=== PATIENT | male | born 1980 | race Caucasian/White ===

== ENCOUNTER 2018-06-20 19:59 | Emergency (ER) | payer SELFPAY ==
--- NOTE | 2018-06-20 21:06 | ER ---
Nurse's Notes [facility] Name: Braydon Vu Age: 37 yrs Sex: Male : 1980 Arrival Date: 06/20/2018 Time: 20:07 Bed 10 Private MD: Diagnosis: Cellulitis and acute lymphangitis of other parts of limb Presentation: 06/20 20:34 Presenting complaint: Patient states: "I got bit by a spider or something, I got a aj1 little bit of pus out of it and I've been treating it with ointment at the house, but now its really swelled and got inflammed. It's making my arm hurt." Abscess noted to right lower arm. Patient denies fever. Transition of care: patient was not received from another setting of care. Onset of symptoms was June 16, 2018. Risk Assessment: Do you want to hurt yourself or someone else? Patient reports no desire to harm self or others. Initial Sepsis Screen: Does the patient meet any 2 criteria? No. Patient's initial sepsis screen is negative. Does the patient have a suspected source of infection? No. Patient's initial sepsis screen is negative. Care prior to arrival: None. 20:34 Method Of Arrival: Ambulatory aj1 20:34 Acuity: CAMILEL 4 aj1 Triage Assessment: 20:36 General: Appears in no apparent distress. comfortable, Behavior is calm, cooperative, aj1 appropriate for age. Pain: Complains of pain in palmar aspect of right forearm Pain currently is 4 out of 10 on a pain scale. Quality of pain is described as burning. Neuro: Level of Consciousness is awake, alert, obeys commands. Cardiovascular: Patient's skin is warm and dry. Respiratory: Airway is patent Respiratory effort is even, unlabored, Respiratory pattern is regular, symmetrical. 21:57 Bite description: by Unknown possible bite. jl3 21:59 Bite description: bite sustained to right arm. jl3 21:59 Bite description: animal information: vaccination(s) is current. jl3 Historical: - Allergies: 20:36 Sulfa (Sulfonamide Antibiotics); aj1 - Home Meds: 20:36 None [Active]; aj1 - PMHx: 20:36 None; aj1 - PSHx: 20:36 eye surgery; vastectomy; hydrocelectomy; aj1 - Immunization history:: Flu vaccine is not up to date. - Social history:: Smoking status: Patient uses tobacco products, denies chronic smoking, but will smoke occasionally, Patient/guardian denies using alcohol, street drugs, The patient lives with family. - Ebola Screening: : Patient denies travel to an Ebola-affected area in the 21 days before illness onset. - Family history:: not pertinent. Screenin:57 Abuse screen: none noted. Nutritional screening: No deficits noted. Tuberculosis jl3 screening: No symptoms or risk factors identified. Fall Risk None identified. Assessment: 21:55 Derm: Skin has lesions on Wound appears to be a puncture to R. elbow, but pt states jl3 possible cellulitis Skin is pink. Vital Signs: 20:36 BP 163 / 102; Pulse 79; Resp 18; Temp 98.1; Pulse Ox 100% on R/A; Weight 145.15 kg (R); aj1 Height 5 ft. 9 in. (175.26 cm); Pain 4/10; 21:59 BP 144 / 96; Pulse 80; Resp 18; Pulse Ox 99% ; Pain 3/10; jl3 20:36 Body Mass Index 47.26 (145.15 kg, 175.26 cm) aj1 ED Course: 20:07 Patient arrived in ED. as 20:35 Triage completed. aj1 20:36 Arm band placed on Patient placed in an exam room. aj1 20:50 Zaida Skaggs MD is Attending Physician. ma2 21:30 Malick Mcdaniel, RN is Primary Nurse. jl3 21:57 No provider procedures requiring assistance completed. Patient did not have IV access jl3 during this emergency room visit. 21:59 Patient has correct armband on for positive identification. jl3 Administered Medications: No medications were administered Outcome: 21:05 Discharge ordered by . ma2 21:58 Discharged to home jl3 21:58 Condition: good 21:58 Discharge instructions given to patient. 22:00 Patient left the ED. jl3 Signatures: Cathy Zapata RN RN aj1 Joselin Taveras John, RN RN jl3 Zaida Skaggs MD MD ma2
--- NOTE | 2018-06-20 21:06 | EDPHYS ---
Physician Documentation [facility] Name: Braydon Vu Age: 37 yrs Sex: Male : 1980 Arrival Date: 06/20/2018 Time: 20:07 Bed 10 Private MD: ED Physician Zaida Skaggs HPI: 06/20 21:02 This 37 yrs old Male presents to ER via Ambulatory with complaints of Insect ma2 Bite. 21:02 The patient or guardian complains of pain, swelling. The complaints affect the palmar ma2 aspect of right forearm. Context: The problem was sustained. Onset: The symptoms/episode began/occurred gradually, 2 day(s) ago. Treatment prior to arrival includes: no previous treatment. Associated signs and symptoms: Pertinent positives:. Associated signs and symptoms: Pertinent positives: erythema, swelling, Pertinent negatives: pain, tingling. Severity of symptoms: At their worst the symptoms were moderate. The patient has not experienced similar symptoms in the past. Historical: - Allergies: 20:36 Sulfa (Sulfonamide Antibiotics); aj1 - Home Meds: 20:36 None [Active]; aj1 - PMHx: 20:36 None; aj1 - PSHx: 20:36 eye surgery; vastectomy; hydrocelectomy; aj1 - Immunization history:: Flu vaccine is not up to date. - Social history:: Smoking status: Patient uses tobacco products, denies chronic smoking, but will smoke occasionally, Patient/guardian denies using alcohol, street drugs, The patient lives with family. - Ebola Screening: : Patient denies travel to an Ebola-affected area in the 21 days before illness onset. - Family history:: not pertinent. ROS: 21:02 Constitutional: Negative for fever, chills, and weight loss, Eyes: Negative for injury, ma2 pain, redness, and discharge, Cardiovascular: Negative for chest pain, palpitations, and edema. 21:02 Skin: Positive for swelling, Negative for abscesses, avulsion, puncture. 21:02 All other systems are negative. Exam: 21:02 Constitutional: This is a well developed, well nourished patient who is awake, alert, ma2 and in no acute distress. Head/Face: Normocephalic, atraumatic. Chest/axilla: Normal chest wall appearance and motion. Nontender with no deformity. No lesions are appreciated. Cardiovascular: Regular rate and rhythm with a normal S1 and S2. No gallops, murmurs, or rubs. Normal PMI, no JVD. No pulse deficits. Respiratory: Lungs have equal breath sounds bilaterally, clear to auscultation and percussion. No rales, rhonchi or wheezes noted. No increased work of breathing, no retractions or nasal flaring. Neuro: Awake and alert, GCS 15, oriented to person, place, time, and situation. Cranial nerves II-XII grossly intact. Motor strength 5/5 in all extremities. Sensory grossly intact. Cerebellar exam normal. Normal gait. 21:02 Musculoskeletal/extremity: Circulation is intact in all extremities. Sensation intact. Compartment Syndrome exam of affected extremity: is normal. right forearm cellulitis with induration 3x3 cm, no fluctuance . Vital Signs: 20:36 BP 163 / 102; Pulse 79; Resp 18; Temp 98.1; Pulse Ox 100% on R/A; Weight 145.15 kg (R); aj1 Height 5 ft. 9 in. (175.26 cm); Pain 4/10; 21:59 BP 144 / 96; Pulse 80; Resp 18; Pulse Ox 99% ; Pain 3/10; jl3 20:36 Body Mass Index 47.26 (145.15 kg, 175.26 cm) aj1 MDM: 20:50 Patient medically screened. ma2 21:02 Differential diagnosis: contusion, abrasion, cellulitis. Data reviewed: vital signs, ma2 nurses notes. Counseling: I had a detailed discussion with the patient and/or guardian regarding: the historical points, exam findings, and any diagnostic results supporting the discharge/admit diagnosis, the presence of at least one elevated blood pressure reading (>120/80) during this emergency department visit, the need for outpatient follow up. 06/20 20:51 Order name: NPO; Complete Time: 21:54 ma2 Administered Medications: No medications were administered Disposition: 06/20/18 21:05 Discharged to Home. Impression: Cellulitis and acute lymphangitis of other parts of limb. - Condition is Stable. - Discharge Instructions: Cellulitis, Adult. - Prescriptions for Clindamycin HCl 300 mg Oral Capsule - take 1 capsule by ORAL route every 6 hours for 10 days; 40 capsule. Tylenol- Codeine #3 300-30 mg Oral Tablet - take 2 tablet by ORAL route every 6 hours As needed; 30 tablet. - Medication Reconciliation Form, Thank You Letter, Antibiotic Education, Prescription Opioid Use form. - Follow up: Private Physician; When: Tomorrow; Reason: Continuance of care. - Problem is new. - Symptoms are unchanged. Signatures: Cathy Zapata RN RN aj1 Malick Mcdaniel RN RN jl3 Zaida Skaggs MD MD ma2 Corrections: (The following items were deleted from the chart) 22:00 21:05 06/20/2018 21:05 Discharged to Home. Impression: Cellulitis and acute jl3 lymphangitis of other parts of limb. Condition is Stable. Forms are Medication Reconciliation Form, Thank You Letter, Antibiotic Education, Prescription Opioid Use. Follow up: Private Physician; When: Tomorrow; Reason: Continuance of care. Problem is new. Symptoms are unchanged. ma2
[2018-06-20 23:48] VITALS: TEMP 98.1
[2018-06-20 23:49] VITALS: BP 144/96; O2SAT 99
== END 2018-06-20 22:00 | disposition home or self-care (01) ==
LOC: ER 19:59
DX: L03.113 Cellulitis of right upper limb (principal); L03.123 Acute lymphangitis of right upper limb; Z72.0 Tobacco use; Z88.2 Allergy status to sulfonamides
CPT/HCPCS: 99281

== ENCOUNTER → 2023-10-03 | Emergency (ER) | payer OTHER, SELFPAY ==
[~2023-10-03] MED LIST: ALBUTEROL 2.5 MG/3 ML NEB SOL ONE; DIPHENHYDRAMINE 50 MG/ML VIAL ONE; EPINEPHRINE 1 MG/ML VIAL ONE; EPINEPHrine 1 MG/10 ML SYR ONE; FAMOTIDINE 20 MG/2 ML VIAL IV ONE; IPRATROPIUM BROM 0.5MG/2.5ML ONE; METHYLPREDNISOLONE 125 MG INJ ONE; NA CHLORIDE 0.9% 1,000 ML ONE; predniSONE 20 MG TAB ONE
--- OUTSIDE RECORDS SUMMARY | 2023-10-03 16:12 | XMS REPORT | Continuity of Care Document ---
Author Name Unknown Address [address] [place] [address] [id number] [facility] Address [address] [id number] [address] [place] [address] Care Team Providers Care Meat Curer Name Role Phone Pedro Palmer Attending Clinician Unavailable Problems Condition Name Condition Details Condition Category Status Onset Date Resolution Date Last Treatment Date Treating Clinician Comments Source Tobacco use disorder Tobacco use disorder Problem Active [facility] Morbid (severe) obesity due to excess calories Morbid (severe) obesity due to excess calories Problem Active [facility] Body mass index (BMI) 50.0-59.9, adult Body mass index (BMI) 50.0-59.9, adult Problem Active [facility] Mixed hyperlipid emia Mixed hyperlipid emia Diagnosis Active [facility] Elevated BP without diagnosis of hypertensi on Elevated BP without diagnosis of hypertensi on Diagnosis Active [facility] Acute bronchitis , unspecifie d organism Acute bronchitis , unspecifie d organism Diagnosis Active [facility] Allergies, Adverse Reactions, Alerts Allergy Name Allergy Type Status Severity Reaction(s) Onset Date Inactive Date Treating Clinician Comments Source Sulfa Adverse Reaction Active Info Not Available [facility] Medications Ordered Medication Name Filled Medication Name Start Date Stop Date Current Medication? Ordering Clinician Indication Dosage Frequency Signature (SIG) Comments Components Source ProAir HFA ProAir HFA 3-10 00:00: 00 Yes Pedro Palmer 2 puffs as needed [facility] Pseudoeph-B romphen-DM Pseudoeph-B romphen-DM 3-10 00:00: 00 Yes Pedro Palmer Take 5 ml (Max 40 ml/24 hours) [facility] Phentermine HCl Phentermine HCl 12 00:00: 00 11-30 00:00 :00 No Pedro Palmer Take 1 Capsule QAm x 2 weeks then 2 Caps qAM x 1 week [facility] Encounters Start Date/Time End Date/Time Encounter Type Admission Type Attending [facility] Facility Care Department Encounter ID Source 2021-10-15 11:12:29 Outpatient Pedro Palmer [facility] [id number] [facility] 2021-10-15 11:07:13 Outpatient Pedro Palmer [facility] [id number] [facility] 2021-10-15 11:06:28 Outpatient Pedro Palmer [facility] [id number] [facility] 2019-11-28 08:30:00 2019-11-28 08:30:00 Outpatient [facility] [id number] [facility] 2019-11-01 08:15:00 2019-11-01 08:15:00 Outpatient [facility] [id number] [facility]
[2023-10-03 16:52] LABS: Absolute Lymphocytes (CBC) 4.1 K/uL (0.7-4.9); Hematocrit 39.8 % (39.6-49.0); Lymphocytes % 29.5 % (15.3-44.8); MCV 78.1 fL (80-100); MPV 7.4 fL (7.6-11.3); Platelets 425 thou/uL (152-406)
[2023-10-03 17:35] LABS: Albumin 3.4 g/dL (3.4-5.0); Bilirubin Total 0.7 mg/dL (0.2-1.0); Protein, Total 8.7 g/dL (6.4-8.2)
[2023-10-03 17:36] LABS: Potassium 4.2 mEq/L (3.5-5.1)
--- NOTE | 2023-10-03 18:50 | EDPHYS ---
Physician Documentation [facility] Name: Braydon Vu Age: 43 yrs Sex: Male : 1980 Arrival Date: 10/03/2023 Time: 16:09 Bed 5 Private MD: RANI Physician Delmer Leroy HPI: 10/03 17:15 This 43 yrs old Male presents to ER via Ambulatory with complaints of sary Allergic Reaction, Lips Swelling, Facial Swelling. 17:15 The patient presents with difficulty swallowing, diffuse swelling, rash, redness of sary skin, swelling of the lips, swelling of the tongue. Onset: The symptoms/episode began/occurred this morning, today. Associated signs and symptoms: The patient has no apparent associated signs or symptoms. Possible causes: The patient has no known obvious cause for the symptoms. At home the patient or guardian has treated the symptoms with Benadryl. Severity of symptoms: At their worst the symptoms were mild moderate in the emergency department the symptoms are unchanged. The patient has not experienced similar symptoms in the past. Historical: - Allergies: 16:18 Sulfa (Sulfonamide Antibiotics); cm10 - Home Meds: 16:18 None [Active]; cm10 - PMHx: 16:18 None; cm10 - Immunization history:: Adult Immunizations up to date. - Social history:: Smoking status: Reported history of juuling and/or vaping. - Family history:: not pertinent. ROS: 17:15 Constitutional: Negative for fever, chills, and weight loss, Eyes: Negative for injury, sary pain, redness, and discharge, Neck: Negative for injury, pain, and swelling, Cardiovascular: Negative for chest pain, palpitations, and edema, Respiratory: Negative for shortness of breath, cough, wheezing, and pleuritic chest pain, Abdomen/GI: Negative for abdominal pain, nausea, vomiting, diarrhea, and constipation, Back: Negative for injury and pain, : Negative for injury, bleeding, discharge, and swelling, MS/Extremity: Negative for injury and deformity, Skin: Negative for injury, rash, and discoloration, Neuro: Negative for headache, weakness, numbness, tingling, and seizure, Psych: Negative for depression, anxiety, suicide ideation, homicidal ideation, and hallucinations, Allergy/Immunology: Negative for hives, rash, and allergies, Endocrine: Negative for neck swelling, polydipsia, polyuria, polyphagia, and marked weight changes, Hematologic/Lymphatic: Negative for swollen nodes, abnormal bleeding, and unusual bruising, 17:15 ENT: Positive for difficulty swallowing, sinus congestion, Exam: 17:15 Constitutional: This is a well developed, well nourished patient who is awake, alert, sary and in no acute distress. Eyes: Pupils equal round and reactive to light, extra-ocular motions intact. Lids and lashes normal. Conjunctiva and sclera are non-icteric and not injected. Cornea within normal limits. Periorbital areas with no swelling, redness, or edema. Neck: Trachea midline, no thyromegaly or masses palpated, and no cervical lymphadenopathy. Supple, full range of motion without nuchal rigidity, or vertebral point tenderness. No Meningismus. Chest/axilla: Normal chest wall appearance and motion. Nontender with no deformity. No lesions are appreciated. Cardiovascular: Regular rate and rhythm with a normal S1 and S2. No gallops, murmurs, or rubs. Normal PMI, no JVD. No pulse deficits. Respiratory: Lungs have equal breath sounds bilaterally, clear to auscultation and percussion. No rales, rhonchi or wheezes noted. No increased work of breathing, no retractions or nasal flaring. Abdomen/GI: Soft, non-tender, with normal bowel sounds. No distension or tympany. No guarding or rebound. No evidence of tenderness throughout. Back: No spinal tenderness. No costovertebral tenderness. Full range of motion. Male : Normal genitalia with no discharge or lesions. Skin: Warm, dry with normal turgor. Normal color with no rashes, no lesions, and no evidence of cellulitis. MS/ Extremity: Pulses equal, no cyanosis. Neurovascular intact. Full, normal range of motion. Neuro: Awake and alert, GCS 15, oriented to person, place, time, and situation. Cranial nerves II-XII grossly intact. Motor strength 5/5 in all extremities. Sensory grossly intact. Cerebellar exam normal. Normal gait. Psych: Awake, alert, with orientation to person, place and time. Behavior, mood, and affect are within normal limits. 17:15 Head/face: Noted is swelling, that is moderate, of the right eye, left eye and mouth, 17:15 ENT: Mouth: Lips: Oral mucosa: pink and intact, moist, Gums: normal with healthy appearance, Tongue: is swollen, abscess, is not appreciated, drooling, is not appreciated, Vital Signs: 16:16 BP 131 / 65; Pulse 54; Resp 18 S; Temp 98.1(TE); Pulse Ox 98% ; Weight 161.03 kg; cm10 Height 5 ft. 9 in. ; Pain 0/10; 16:54 BP 130 / 72; Pulse 53; Resp 17; Pulse Ox 100% ; ld1 17:52 BP 120 / 50; Pulse 65; Resp 18; Pulse Ox 98% on R/A; mb9 16:16 Body Mass Index 52.42 (161.03 kg, 175.26 cm) cm10 16:16 Pain Scale: Adult cm10 MDM: 16:19 Patient medically screened. sary 17:20 Differential diagnosis: anaphylaxis, angioedema, foreign body or airway obstruction sary Status Asthmaticus urticaria. Data reviewed: vital signs, nurses notes, lab test result(s), CBC, electrolytes. Consideration of Admission/Observation Escalation of care including admission/observation considered. I considered the following discharge prescriptions or medication management in the emergency department Medications were administered in the Emergency Department. See MAR. Test considered but Not performed: EKG: NO EKG. Historians other than the Patient: PT WELL INFORMED. Care significantly affected by the following chronic conditions: Obesity. Counseling: I had a detailed discussion with the patient and/or guardian regarding the historical points, exam findings, and any diagnostic results supporting the discharge/admit diagnosis, lab results, the need for outpatient follow up. 10/03 16:23 Order name: CBC with Diff; Complete Time: 18:49 sary 10/03 16:23 Order name: Comprehensive Metabolic Panel; Complete Time: 18:49 sary Administered Medications: 16:40 Drug: diphenhydrAMINE IVP 75 mg IVP once Route: IVP; Site: right antecubital; ld1 17:23 Follow up: Response: No adverse reaction mb9 16:40 Drug: MethylPrednisoLONE IVP 250 mg IVP once Route: IVP; Site: right antecubital; ld1 17:23 Follow up: Response: No adverse reaction mb9 16:40 Drug: Famotidine IVP 40 mg IVP once; dilute with 10 mL 0.9% NaCl; give over 2 minutes ld1 Route: IVP; Site: right antecubital; 17:23 Follow up: Response: No adverse reaction mb9 16:40 Drug: Albuterol Inhalation 7.5 mg Inhalation once Route: Inhalation; ld1 16:40 Drug: Ipratropium Inhalation Aerosol 0.5 mg Inhalation once Route: Inhalation; ld1 16:40 Drug: predniSONE PO 60 mg PO once Route: PO; ld1 17:23 Follow up: Response: No adverse reaction mb9 16:41 Drug: NS 0.9% IV 1000 ml IV at 1 bolus Per protocol; 1000 mL bolus Route: IV; Rate: 1 ld1 bolus; Site: right antecubital; 16:41 Drug: EPINEPHrine 1:1000 Sub-Q 1:1,000 0.4 ml Sub-Q once Route: Sub-Q; Site: right ld1 upper arm; 17:23 Follow up: Response: No adverse reaction mb9 17:23 Follow up: Response: No adverse reaction mb9 Disposition Summary: 10/03/23 18:50 Discharge Ordered Notes: Location: Home sary Problem: new sary Symptoms: have improved sary Condition: Stable sary Diagnosis - Other allergy sary - Anaphylactic reaction due to unspecified food sary - Angioneurotic edema sary - Elevated white blood cell count sary Followup: sary - With: Private Physician - When: 1 - 2 days - Reason: Recheck today's complaints, Continuance of care, Re-evaluation by your physician Discharge Instructions: - Discharge Summary Sheet sary - Food Allergy sary - Angioedema sary - Angioedema, [id number] Forms: - Medication Reconciliation Form [facility] - Thank You Letter [facility] - Antibiotic Education sary - Prescription Opioid Use sary - Patient Portal Instructions [facility] - Leadership Thank You Letter [facility] Prescriptions: - EpiPen 2-Randolph - inject 1 unit SUBCUTANEOUS route as directed; 1 Pack; Refills: 0, Product sary Selection Permitted - Benadryl 25 mg Oral capsule - take 2 capsule ORAL route every 6 hours As needed; 40 tablet; Refills: 0, [facility] Product Selection Permitted - Pepcid 20 mg Oral tablet - take 1 tablet ORAL route every 12 hours for 21 days; 42 tablet; Refills: 0, [facility] Product Selection Permitted - Prednisone 20 mg Oral Tablet - take 3 tablets ORAL route once daily for 5 days; 15 tablet; Refills: 0, Product sary Selection Permitted Critical care time excluding procedures: 17:20 Critical care time: Bedside Care: 25 minutes, Family Intervention: 10 minutes. Total sary time: 35 minutes Signatures: Dispatcher [employer] Delmer White MD MD cha Sims, Lauren RN RN ld1 She Taveras RN RN cm10 Radha Wong RN mb9 Corrections: (The following items were deleted from the chart) 16:19 16:18 PMHx: Unable to Obtain; cm10 cm10
--- NOTE | 2023-10-03 18:50 | ER ---
Nurse's Notes [facility] Name: Braydon Vu Age: 43 yrs Sex: Male : 1980 Arrival Date: 10/03/2023 Time: 16:09 Bed 5 Private MD: Diagnosis: Other allergy;Anaphylactic reaction due to unspecified food;Angioneurotic edema;Elevated white blood cell count Presentation: 10/03 16:16 Chief complaint: Patient states: Allergic reaction onset 2hrs ago. Pt has noted cm10 swelling to face and lips. No breathing difficulty. Unknown what caused it. Coronavirus screen: Vaccine status: Patient reports being unvaccinated. Client denies travel out of the [place] in the last 14 days. Ebola Screen: Patient denies travel to an Ebola-affected area in the 21 days before illness onset. No symptoms or risks identified at this time. Onset: The symptoms/episode began/occurred 2 hour(s) ago. Anaphylaxis evaluation, angioedema. Initial Sepsis Screen: Does the patient meet any 2 criteria? No. Patient's initial sepsis screen is negative. Does the patient have a suspected source of infection? No. Patient's initial sepsis screen is negative. Risk Assessment: Do you want to hurt yourself or someone else? Patient reports no desire to harm self or others. Onset of symptoms was October 03, 2023. 16:16 Method Of Arrival: Ambulatory cm10 16:16 Acuity: CAMILLE 2 cm10 Historical: - Allergies: 16:18 Sulfa (Sulfonamide Antibiotics); cm10 - Home Meds: 16:18 None [Active]; cm10 - PMHx: 16:18 None; cm10 - Immunization history:: Adult Immunizations up to date. - Social history:: Smoking status: Reported history of juuling and/or vaping. - Family history:: not pertinent. Screenin:19 [facility] ED Fall Risk Assessment (Adult) History of falling in the last 3 months, mb9 including since admission No falls in past 3 months (0 pts) Confusion or Disorientation No (0 pts) Intoxicated or Sedated No (0 pts) Impaired Gait No (0 pts) Mobility Assist Device Used No (0 pt) Altered Elimination No (0 pt) Score/Fall Risk Level 0 - 2 = Low Risk Oriented to surroundings, Maintained a safe environment, Educated pt \T\ family on fall prevention, incl call for assistance when getting out of bed. Abuse screen: Denies threats or abuse. Nutritional screening: No deficits noted. Tuberculosis screening: No symptoms or risk factors identified. Assessment: 16:45 General: Appears in no apparent distress. Behavior is calm, cooperative. Pain: Denies mb9 pain. Neuro: Mejía Agitation-Sedation Scale (RASS): 0 - Alert and Calm Level of Consciousness is awake, alert, obeys commands, Oriented to person, place, time, situation, Appropriate for age. Cardiovascular: Patient's skin is warm and dry. Rhythm is sinus bradycardia. Respiratory: Airway is patent Respiratory effort is even, unlabored, Respiratory pattern is regular, symmetrical, Breath sounds are clear bilaterally. GI: Abdomen is round non-distended, Bowel sounds present X 4 quads. Abd is soft and non tender X 4 quads. : No signs and/or symptoms were reported regarding the genitourinary system. EENT: swollen lips. Throat is clear. Derm: Skin is pink, warm \T\ dry. Musculoskeletal: Range of motion: intact in all extremities, Swelling present in face and mouth. 17:52 Reassessment: Patient and/or family updated on plan of care and expected duration. Pain mb9 level reassessed. Patient is alert, oriented x 3, equal unlabored respirations, skin warm/dry/pink. Patient states feeling better. Patient states symptoms have improved. 18:54 Reassessment: Patient and/or family updated on plan of care and expected duration. Pain mb9 level reassessed. Patient is alert, oriented x 3, equal unlabored respirations, skin warm/dry/pink. Patient states feeling better. Patient states symptoms have improved. Vital Signs: 16:16 BP 131 / 65; Pulse 54; Resp 18 S; Temp 98.1(TE); Pulse Ox 98% ; Weight 161.03 kg; cm10 Height 5 ft. 9 in. ; Pain 0/10; 16:54 BP 130 / 72; Pulse 53; Resp 17; Pulse Ox 100% ; ld1 17:52 BP 120 / 50; Pulse 65; Resp 18; Pulse Ox 98% on R/A; mb9 16:16 Body Mass Index 52.42 (161.03 kg, 175.26 cm) cm10 16:16 Pain Scale: Adult cm10 ED Course: 16:12 Patient arrived in ED. rg4 16:18 Triage completed. cm10 16:19 Radha Wong, BANDAR is Primary Nurse. mb9 16:19 Delmer Leroy MD is Attending Physician. sary 16:19 Arm band placed on Patient placed in an exam room, on a stretcher. cm10 16:40 Inserted saline lock: 22 gauge in right antecubital area, using aseptic technique. mb4 16:47 Placed in gown. Bed in low position. Call light in reach. Side rails up X 1. Client mb9 placed on continuous cardiac and pulse oximetry monitoring. NIBP monitoring applied. monitoring tech on. 18:54 No provider procedures requiring assistance completed. IV discontinued, intact, ld1 bleeding controlled, No redness/swelling at site. Administered Medications: 16:40 Drug: diphenhydrAMINE IVP 75 mg IVP once Route: IVP; Site: right antecubital; ld1 17:23 Follow up: Response: No adverse reaction mb9 16:40 Drug: MethylPrednisoLONE IVP 250 mg IVP once Route: IVP; Site: right antecubital; ld1 17:23 Follow up: Response: No adverse reaction mb9 16:40 Drug: Famotidine IVP 40 mg IVP once; dilute with 10 mL 0.9% NaCl; give over 2 minutes ld1 Route: IVP; Site: right antecubital; 17:23 Follow up: Response: No adverse reaction mb9 16:40 Drug: Albuterol Inhalation 7.5 mg Inhalation once Route: Inhalation; ld1 16:40 Drug: Ipratropium Inhalation Aerosol 0.5 mg Inhalation once Route: Inhalation; ld1 16:40 Drug: predniSONE PO 60 mg PO once Route: PO; ld1 17:23 Follow up: Response: No adverse reaction mb9 16:41 Drug: NS 0.9% IV 1000 ml IV at 1 bolus Per protocol; 1000 mL bolus Route: IV; Rate: 1 ld1 bolus; Site: right antecubital; 16:41 Drug: EPINEPHrine 1:1000 Sub-Q 1:1,000 0.4 ml Sub-Q once Route: Sub-Q; Site: right ld1 upper arm; 17:23 Follow up: Response: No adverse reaction mb9 17:23 Follow up: Response: No adverse reaction mb9 Medication: 16:47 VIS not applicable for this client. mb9 Outcome: 18:50 Discharge ordered by . sary 18:55 Discharged to home ambulatory, ld1 18:55 Condition: stable 18:55 Discharge instructions given to patient, Instructed on discharge instructions, follow up and referral plans. medication usage, Demonstrated understanding of instructions, follow-up care, medications, Prescriptions given X 3, 18:55 Patient left the ED. ld1 18:55 Discharged to home ambulatory, with family, mb9 18:55 Condition: stable Signatures: Delmer Leroy MD MD cha Garcia, Rubi rg4 Jennifer Chowdhury mb4 Chacha Valenzuela RN RN ld1 Radha Wong RN RN mb9 She Taveras RN RN cm10 Corrections: (The following items were deleted from the chart) 16:19 16:18 PMHx: Unable to Obtain; cm10 cm10
[2023-10-03 19:40] VITALS: BP 120/50; TEMP 98.1; O2SAT 98
== END ==
LOC: ER 16:09
DX: T78.00XA Anaphylactic reaction due to unspecified food, initial encounter (principal); T78.3XXA Angioneurotic edema, initial encounter; D72.829 Elevated white blood cell count, unspecified; R22.9 Localized swelling, mass and lump, unspecified; T78.49XA Other allergy, initial encounter; R09.81 Nasal congestion; Z88.2 Allergy status to sulfonamides
CPT/HCPCS: 85025; 36415; 80053; 96375; 96372; 96374; 99285; J7512; J1200; J7613; J7644; J0171; J2930 ×2; J7030